=== PATIENT | male | born 1970 | race Native Hawaiian/Other Pacific Islander ===

== ENCOUNTER 2018-10-21 10:30 | Outpatient (CLI) | payer BC | END 2018-10-21 20:24 | disposition home or self-care (01) | LOC: MAMMO 10:30 | DX: N63.20 Unspecified lump in the left breast, unspecified quadrant (principal) ==

== ENCOUNTER 2021-03-06 15:04 | Emergency (ER) | payer BC ==
[~2021-03-06] VITALS: Ht 177.8 cm; Wt 106.6 kg
[2021-03-06 15:20] VITALS: TEMP 98.3
[2021-03-06 16:06] LABS: PLATELET COUNT 218 K/uL (142-355)
[2021-03-06 16:11] LABS: POTASSIUM 4.6 mmol/L (3.6-5.2)
[2021-03-06 19:40] VITALS: BP 113/77
== END 2021-03-06 19:57 | disposition home or self-care (01) ==
LOC: ED 15:04
PROVIDERS: Hospitalist
DX: R10.32 Left lower quadrant pain (principal); K57.32 Diverticulitis of large intestine without perforation or abscess without bleeding
CPT/HCPCS: 80053; 81000; 82150; 83690; 85027; 96361; 96365; 96375; 99284; J1170; J1885; J2405; J3490; Q9963

== ENCOUNTER 2022-06-03 04:58 | Emergency (ER) | payer BC ==
[~2022-06-03] VITALS: Ht 177.8 cm; Wt 104.3 kg
[2022-06-03 05:05] VITALS: TEMP 98.1
[2022-06-03 05:28] LABS: PLATELET COUNT 189 K/uL (142-355)
[2022-06-03 05:43] LABS: POTASSIUM 3.9 mmol/L (3.6-5.2)
[2022-06-03 09:40] VITALS: BP 109/76
== END 2022-06-03 09:41 | disposition home or self-care (01) ==
LOC: ED 04:58
PROVIDERS: Emergency Medicine
DX: R10.32 Left lower quadrant pain (principal); N20.0 Calculus of kidney; Z87.898 Personal history of other specified conditions; K57.90 Diverticulosis of intestine, part unspecified, without perforation or abscess without bleeding
CPT/HCPCS: 36415; 80053; 81002; 85027; 96360; 96361; 96374; 96375; 99284; J2270; J2405; Q9963